=== PATIENT | male | born 1970 | race Asian ===

== ENCOUNTER 2016-03-28 11:11 | Emergency (ER) | payer OTHER ==
[2015-07-06 13:49] VITALS: Ht 175.3 cm; Wt 68.0 kg
[~2016-03-28] VITALS: Ht 175.3 cm; Wt 68.0 kg
[~2016-03-28 11:11] MED LIST: FOLI-43 PO; HYDR-1189 PO; LIB25 PO; ONDA4TAB5 PO; PRO40 PO; THIA100T13 PO
[2016-03-28 11:27] VITALS: BP 121/91; PULSE 102; RESP 19; TEMP 97.3; O2SAT 98
[2016-03-28 12:00] VITALS: TEMP 97.3
[2016-03-28] MEDS ORDERED: ACETAMINOPHEN 650 MG/20.3 ML UDC PO ONE (12:00)
[2016-03-28] MEDS ORDERED: ACETAMINOPHEN 325 MG TABLET PO ONE (12:00)
[2016-03-28] MEDS ORDERED: ONDANSETRON 4 MG ODT TAB PO ONE (13:00)
[2016-03-28] MEDS ORDERED: KETOROLAC TROMETHAMINE 60 MG/2 ML VIAL IM ONE (13:00)
[2016-03-28 13:52] VITALS: BP 135/68; PULSE 85; RESP 16; O2SAT 99
== END 2016-03-28 13:52 | disposition home or self-care (01) ==
LOC: SED 11:11
DX: M25.511 Pain in right shoulder (principal); K21.9 Gastro-esophageal reflux disease without esophagitis; Z86.79 Personal history of other diseases of the circulatory system
CPT/HCPCS: 73030; 73130; 96372; 99284; J1885; Q0162